=== PATIENT | female | born 1990 | race Hispanic/Latino ===

== ENCOUNTER 2023-01-03 21:51 | Emergency (ER) | payer OTHER ==
[~2023-01-03] VITALS: Ht 160 cm; Wt 75.7 kg
[2023-01-03 22:01] VITALS: BP 111/77
[2023-01-03] MEDS ORDERED: IBUP-2077 PO (23:14)
[2023-01-03] MEDS ORDERED: ACYC-138 PO (23:14)
== END 2023-01-03 23:37 | disposition home or self-care (01) ==
LOC: EDH 21:51
DX: B02.9 Zoster without complications (principal); Z86.19 Personal history of other infectious and parasitic diseases
CPT/HCPCS: 81025

== ENCOUNTER 2024-02-24 21:25 | Emergency (ER) | payer BC, OTHER ==
[~2024-02-24] VITALS: Ht 152.4 cm; Wt 79.8 kg
[~2024-02-24 21:25] MED LIST: ACYC-138 PO; IBUP-2077 PO
[2024-02-24] MEDS ORDERED: NAPR375T6 PO (23:31)
[2024-02-24 23:47] VITALS: BP 114/68; PULSE 88; RESP 20; O2SAT 97
[2024-02-24] MEDS: ACETAMINOPHEN 500 MG TABLET PO ONE (23:52)
== END 2024-02-25 00:03 | disposition home or self-care (01) ==
LOC: EDH 21:25
DX: S86.911A Strain of unspecified muscle(s) and tendon(s) at lower leg level, right leg, initial encounter (principal); G89.29 Other chronic pain; M25.561 Pain in right knee; Z98.51 Tubal ligation status; X58.XXXA Exposure to other specified factors, initial encounter; Y93.89 Activity, other specified; Y92.89 Other specified places as the place of occurrence of the external cause; Y99.8 Other external cause status
CPT/HCPCS: 29505; 73562

== ENCOUNTER 2024-05-14 17:40 | Emergency (ER) | payer SELFPAY ==
[~2024-05-14] VITALS: Ht 152.4 cm; Wt 80.7 kg
[~2024-05-14 17:40] MED LIST changes: +NAPR375T6 PO
[2024-05-14 18:11] LABS: BASOPHILS # (AUTO) 0.04 K/uL (0.00-0.20); BASOPHILS % (AUTO) 0.4 % (0.0-5.0); EOSINOPHILS # (AUTO) 0.08 K/uL (0.00-0.70); EOSINOPHILS % (AUTO) 0.9 % (0.0-8.0); HEMATOCRIT 40.5 % (36-48); IMMATURE GRANULOCYTE ABSOLUTE 0.03 K/uL (0-1); LYMPHOCYTES # (AUTO) 2.7 K/uL (1.0-4.8); LYMPHOCYTES % (AUTO) 29.6 % (21.0-51.0); MEAN CORPUSCULAR HEMOGLOBIN 31.8 pg (27.0-33.0); MEAN CORPUSCULAR HGB CONC 34.8 g/dL (32.0-36.0); MEAN CORPUSCULAR VOLUME 91.4 fL (79-99); MONOCYTES # (AUTO) 0.8 K/uL (0.1-1.0); MONOCYTES % (AUTO) 9.3 % (3.0-13.0); NEUTROPHILS # (AUTO) 5.4 K/uL (1.8-7.7); NEUTROPHILS % (AUTO) 59.5 % (40.0-77.0); PLATELET COUNT (AUTO) 325 K/uL (130-400); RED BLOOD CELL COUNT(AUTO) 4.43 MIL/uL (4.00-5.50); RED CELL DISTRIBUTION WIDTH 12.1 % (11.0-15.5); WHITE BLOOD COUNT (AUTO) 9.1 K/uL (4.8-10.8)
[2024-05-14 18:13] LABS: APPEARANCE,URINE CLEAR (CLEAR); BILIRUBIN,URINE NEGATIVE (NEGATIVE); COLOR,URINE COLORLESS (YELLOW); GLUCOSE, URINE (UA) NEGATIVE (NEGATIVE); KETONES,URINE NEGATIVE (NEGATIVE); LEUKOCYTE ESTERASE ,URINE 75 Leu/uL (NEGATIVE); NITRATE,URINE NEGATIVE (NEGATIVE); OCCULT BLOOD,URINE NEGATIVE (NEGATIVE); PH,URINE 5.5 (5.0-8.0); PROTEIN,URINE NEGATIVE (NEGATIVE); UROBILINOGEN,URINE 0.2 mg/dL (0.2-1.0)
[2024-05-14 18:14] LABS: ADD UA MICROSCOPIC YES
[2024-05-14 18:16] LABS: HCG,QUALITATIVE URINE NEGATIVE (NEGATIVE)
[2024-05-14 18:17] LABS: BACTERIA,URINE RARE /HPF (None Seen); MUCUS,URINE RARE LPF (None Seen); SQUAMOUS EPITHELIAL CELL,UR RARE /HPF (0-2)
[2024-05-14] MEDS: 0.9%NACL 1000ML 1,000 ML IV ONE (18:18)
[2024-05-14] MEDS: ASPIRIN 81MG CHEW TAB PO ONE (18:18)
[2024-05-14 18:26] LABS: CREATININE 0.8 mg/dL (0.5-1.0); POTASSIUM 3.9 mmol/L (3.5-5.1)
[2024-05-14 18:35] LABS: MAGNESIUM 2.1 mg/dL (1.80-2.40)
[2024-05-14] MEDS: cefTRIAXone 1G VIAL IVPB ONE (20:12)
[2024-05-14] MEDS: ketOROlac 30MG VIAL (30MG/ML) IVP ONE (20:13)
[2024-05-14] MEDS: acetaMINOPHEN 500 MG TABLET PO ONE (21:33)
[2024-05-14 22:05] VITALS: TEMP 99
[2024-05-14] MEDS ORDERED: NITR100C4 PO (22:08)
[2024-05-14 22:15] VITALS: BP 107/78; PULSE 77; RESP 18; TEMP 98.5; O2SAT 97
[2024-05-14] MEDS ORDERED: HYDR-3421 PO (22:22)
== END 2024-05-14 22:22 | disposition home or self-care (01) ==
LOC: EDH 17:40
DX: R07.89 Other chest pain (principal); N39.0 Urinary tract infection, site not specified; E87.8 Other disorders of electrolyte and fluid balance, not elsewhere classified; F41.9 Anxiety disorder, unspecified; Z98.51 Tubal ligation status; Z79.2 Long term (current) use of antibiotics; Z79.899 Other long term (current) drug therapy
CPT/HCPCS: 99285; 96374; 71045; 96361; 96375; 82550; 83735; 84484 ×3; 80048; 85025; 87086; 81001; 81025; 36415; 93005; J7030; J0696; J1885